=== PATIENT | male | born 1975 ===

== ENCOUNTER 2017-05-27 10:58 | Emergency (ER) | payer BC ==
[2017-05-27 12:37] VITALS: BP 138/88
[2017-05-27] MEDS ORDERED: Albuterol 2.5 MG/3 ML NEB.SOL* (0.083%) INH ONE (13:14)
--- NOTE | 2017-05-27 13:27 | UC ---
Respiratory Complaint HPI - HPI Summary HPI Summary: Cough and congestion for about two weeks. He has also had myalgias on occassion. THese symptoms have been intermittent and going on for two weeks. he has no known lung disease. NO asthma. - History of Current Complaint Chief Complaint: UCRespiratory Stated Complaint: CHEST CONGESTION, COUGH Time Seen by Provider: 05/27/17 13:10 Hx Obtained From: Patient Onset/Duration: Gradual Onset, Lasting Days, Still Present Timing: Intermittent Episodes Severity Initially: Moderate Severity Currently: Moderate Pain Intensity: 4 Character: Cough: Productive Aggravating Factors: Deep Breaths, Recumbent Position Alleviating Factors: Upright Position, Spontaneous Resolution Associated Signs And Symptoms: Positive: Dyspnea, Wheezing, URI, Nasal Congestion. Negative: Hemoptysis, Dizziness, Calf Pain - Allergies/Home Medications Allergies/Adverse Reactions: Allergies Allergy/AdvReac Type Severity Reaction Status Date / Time No Known Allergies Allergy Verified 05/27/17 12:30 Home Medications: Home Medications Citalopram TAB* [CeleXA TAB*] 40 mg PO BEDTIME 05/27/17 [History Confirmed 05/27] GuaiFENesin DM* [Robitussin DM*] 10 ml PO Q6H PRN 05/27/17 [History Confirmed ] PMH/Surg Hx/FS Hx/Imm Hx Previously Healthy: Yes - Surgical History Surgical History: None - Family History Known Family History: Positive: Other - no related family history. - Social History Occupation: Employed Full-time Alcohol Use: Rare Substance Use Type: None Smoking Status (MU): Never Smoked Tobacco Review of Systems Constitutional: Fever, Chills ENT: Sinus Congestion Respiratory: Cough Musculoskeletal: Myalgia All Other Systems Reviewed And Are Negative: Yes Physical Exam Triage Information Reviewed: Yes Appearance: Well-Appearing, No Pain Distress, Well-Nourished Vital Signs: Initial Vital Signs Temp 98.1 F 05/27/17 12:31 Pulse 69 05/27/17 12:31 Resp 18 05/27/17 12:31 BP 138/88 05/27/17 12:31 Pulse Ox 98 05/27/17 12:31 Vital Signs Reviewed: Yes Eyes: Positive: Conjunctiva Clear ENT: Positive: Normal ENT inspection, Pharynx normal, Nasal congestion, TM bulging - right without purulent effusion., Uvula midline. Negative: TM dull, TM red, Tonsillar swelling, Tonsillar exudate, Trismus, Hoarse voice, Sinus tenderness Neck: Positive: Supple, Nontender, No Lymphadenopathy Respiratory: Positive: Lungs clear, Normal breath sounds, No respiratory distress, No accessory muscle use, Wheezing. Negative: Respiratory distress, Decreased breath sounds, Accessory muscle use, Crackles, Rhonchi, Stridor Cardiovascular: Positive: No Murmur, Pulses Normal, Brisk Capillary Refill Abdomen Description: Positive: Nontender, No Organomegaly, Soft. Negative: Distended, Guarding Musculoskeletal: Positive: Strength Intact, ROM Intact, No Edema Neurological: Positive: Alert, Muscle Tone Normal. Negative: Fatigued Psychological: Positive: Age Appropriate Behavior Skin: Negative: rashes UC Diagnostic Evaluation - Laboratory O2 Sat by Pulse Oximetry: 98 - Radiology Xray Interpretation: Positive (See Comments) - pneumonia on the left. Radiology Interpretation Completed By: ED Physician Respiratory Course/Dx - Course Course Of Treatment: Cough and flu symptoms for weeks. Clinically this would suggest pneumonia. On x ray I see infiltrates. We will treat with both antibiotics and tamiflu. HE will f/u with pcp in 2-3 days. - Differential Dx/Diagnosis Differential Diagnosis/HQI/PQRI: Aspiration, Bronchitis, CHF, Pulmonary Edema, Influenza, Laryngitis, Lower Resp Infection, Pneumothorax, Pulmonary Embolism Provider Diagnoses: cough. viral illness. pneumonia. influenza. Discharge - Discharge Plan Condition: Good Disposition: HOME Prescriptions: DOXYcycline CAP(*) [DOXYcycline 100MG CAP(*)] 100 mg PO BID #20 cap Oseltamivir CAP* [Tamiflu CAP*] 75 mg PO BID #10 cap Patient Education Materials: Influenza (ED), Bacterial Pneumonia (DC) Forms: *Work Release Referrals: Non Staff,Doctor [Primary Care Provider] -
--- NOTE | 2017-05-27 13:57 | RAD ---
Indication: Fever, cough. 2 views of the chest including dual energy PA views demonstrate no mediastinal shift. Heart is normal size and configuration. Lungs are clear. IMPRESSION: No active cardiopulmonary disease is noted.
== END 2017-05-27 14:05 | disposition home or self-care (01) ==
LOC: UCCORT 10:58
DX: J10.1 Influenza due to other identified influenza virus with other respiratory manifestations (principal); J18.9 Pneumonia, unspecified organism; B34.9 Viral infection, unspecified; R05 Cough
CPT/HCPCS: 71046; 87502; 99202; G0463